=== PATIENT | female | born 1955 | race Caucasian/White ===

== ENCOUNTER 2017-03-02 16:19 | Inpatient (IN) | payer OTHER ==
[~2017-03-02] VITALS: Ht 160 cm; Wt 80.0 kg
[2017-04-02] MEDS ORDERED: THEO300T4 PO (09:16)
[2017-04-02] MEDS ORDERED: OMEG100037 PO (09:16)
[2017-04-02] MEDS ORDERED: LISI-519 PO (09:16)
--- NOTE | 2017-04-21 06:54 | HHI.DCPOC ---
Discharge Care Plan Diagnosis: (1) Osteoarthritis of right hip (2) Status post total hip replacement, right Your Health Problems Are: Difficulty with ADL Goals to Promote Your Health * To prevent worsening of your condition and complications * To maintain your health at the optimal level Directions to Meet Your Goals Take your medications as prescribed Follow your dietary instruction Follow activity as directed Keep your appointments as scheduled Take your immunizations and boosters as scheduled If your symptoms worsen call your PCP, if no PCP go to Urgent Care Center or Emergency Room Smoking is Dangerous to Your Health. Avoid second hand smoke Call the 24-hour hour crisis hotline for domestic abuse at Tc Mckeon April 21, 2017 06:54
--- NOTE | 2017-04-21 06:54 | HHI.FF ---
Face to Face Verification Diagnosis: (1) Osteoarthritis of right hip (2) Status post total hip replacement, right Physical Therapy Gait training, Transfer training, bed to chair Hip: Total hip Right LE Weight Bearing: WB as tolerated Right LE Range of Motion: Active ROM Nursing Nursing: Nabeel teaching, Dressing changes Dressing Changes: Daily dressing change I have seen patient Radha Negro on 04/21/17. My clinical findings support the need for the requested home health care services because: Limited ability to care for self High risk of falls I certify that my clinical findings support that this patient is homebound because: Post-op weakness Unsteady gait/balance Tc Mckeon April 21, 2017 06:54
[2017-04-21] MEDS ORDERED: COMMODE 3-IN-11 MIS (06:55)
[2017-04-21] MEDS ORDERED: WALKER WHEELS/F1 MIS (06:55)
[2017-04-21] MEDS ORDERED: ceFAZolin 2 GM PREMIX 50 ML IV SCH (07:15)
[2017-04-21] MEDS ORDERED: DEXAMETHASONE SOD PHOS 20 MG/5 ML VIAL IV ONE (07:15)
[2017-04-21] MEDS ORDERED: POVIDONE IODINE 7.5% SCRUB 118 ML BOTTLE TOPICAL SCH (07:15)
[2017-04-21] MEDS ORDERED: VANCOMYCIN 1000 MG/NS 250 ML (for <70 kg) IV SCH ×2 (07:15)
[2017-04-21] MEDS ORDERED: POVIDONE IODINE 5% (ANTISEPSIS KIT) 4 APPLICATIONS EACH NARE PRN (07:30)
[2017-04-21] MEDS ORDERED: METOPROLOL TARTRATE 25 MG TAB PO PRN (07:30)
[2017-04-21] MEDS ORDERED: SODIUM CHLORID 0.9% 500 ML IV PRN (07:30)
[2017-04-21] MEDS ORDERED: INSULIN HUMAN REGULAR 1,000 UNITS/10 ML VIAL SQ PRN (07:30)
[2017-04-21] MEDS ORDERED: LACTATED RINGER'S 1000 ML IV PRN (07:30)
[2017-04-21] MEDS ORDERED: CHLORHEXIDINE GLUCONATE 2 % 1 PACK (2 CLOTHS) TOPICAL PRN (07:30)
[2017-04-21] MEDS ORDERED: THEO300T30 PO (07:31)
[2017-04-21 07:35] VITALS: BP 156/76; PULSE 86; RESP 20; TEMP 98.8; O2SAT 96
[2017-04-21] MEDS ORDERED: TRANEXAMIC ACID INJ 795 MG in SODIUM CHLORIDE 0.9% INJ 100 ML IV SCH ×2 (08:00→13:00)
[2017-04-21] MEDS ORDERED: EXPAREL PERI-ARTICULAR INJECTION (TOTAL VOL. 60 ML) P-ARTICULR SCH ×2 (08:00)
[2017-04-21] MEDS ORDERED: MIDAZOLAM HCL 2 MG/2 ML VIAL ONE (08:53)
[2017-04-21] MEDS ORDERED: FAMOTIDINE 20 MG/2 ML VIAL ONE (08:54)
[2017-04-21] MEDS ORDERED: fentaNYL CITRATE 250 MCG/5 ML AMP ONE (09:24)
[2017-04-21] MEDS ORDERED: MORPHINE SULFATE 4 MG/ML INJ ONE (09:24)
[2017-04-21] MEDS ORDERED: ACETAMINOPHEN 1000 MG/100 ML VIAL IV ONE (09:24)
[2017-04-21] MEDS ORDERED: ePHEDrine/NS 25 MG/5 ML SYR IV ONE (10:17)
[2017-04-21] MEDS ORDERED: ONDANSETRON HCL 4 MG/2 ML VIAL IV PUSH ONE (10:17)
[2017-04-21] MEDS ORDERED: LACTATED RINGER'S 1000 ML INJ 1,000 ML IV ONE (10:17)
[2017-04-21] MEDS ORDERED: PROPOFOL 200 MG/20 ML AMP IV ONE (10:17)
[2017-04-21] MEDS ORDERED: NEOSTIGMINE 3 MG/3 ML SYR IV ONE (10:17)
[2017-04-21] MEDS ORDERED: GENTAMICIN SULFATE 80 MG/2 ML VIAL IRRIGATION ONE (10:28)
[2017-04-21] MEDS: SODIUM CHLOR 0.9% 1000 ML INJ 1,000 ML IV SCH ×2 (11:41→20:13)
--- NOTE | 2017-04-21 11:44 | PD.OP ---
cc: Carlos Ladd MD Operative Report Date of Surgery: April 21, 2017 Preoperative Diagnosis: Right hip severe osteoarthritis Postoperative Diagnosis: Same Procedure: Right total hip arthroplasty Anesthesia: Gen. Surgeon: Carlos Ladd Access Representative(s): FELIZ Bliss The surgical procedure was assisted by my Advanced Registered Nurse Practitioner. My UROLOGY PHYSICIAN ASSISTANT presence was necessary throughout this case for the manipulation and positioning of the surgical extremity. My UROLOGY PHYSICIAN ASSISTANT was assisting me throughout the duration of this procedure. The skill set of an Advance Registered Nurse Practitioner was medically necessary to complete this procedure. During the surgical case, the pharmacy technician instructor was working at the back table and the Advance Registered Nurse Practitioner was directly assisting me. Operation and Findings: IMPLANT DESCRIPTION: 1. Pace Gription Cup, acetabular size 48. 2. Pace AltrX polyethylene, neutral. 4. Corail femoral stem size 9, no collar, standard offset. 5. Femoral head/neck ceramic, 32, +1. ESTIMATED BLOOD LOSS: 250 cc. JUSTIFICATION FOR PROCEDURE: The patient has end-stage osteoarthritis to the hip. There is an attached conservative measures pathway form in the chart that describes the nonoperative measures that were undertaken prior to consideration of surgical management. The patient understood the risks and benefits of surgical management. See my office notes for further details. PROCEDURE: The patient was brought back to the operative theatre. Adequate anesthesia was obtained. The patient received intravenous vancomycin and Ancef. The patient was carefully placed on the operative table. The lower extremity was prepped and draped in the usual sterile fashion. Fluoroscopic images were obtained. We made a standard anterior incision over the hip. We dissected through the TFL fascia, exposing the anterior capsule. Arthrotomy was performed in a T-shaped fashion. The capsule was tagged with a #2 FiberWire. End-stage arthritis was identified. Osteotomy was performed through the femoral neck exposing the acetabulum. Remnants of the labrum were resected and osteophytes were removed. We sequentially reamed the acetabulum. We trialed the hip and placed the final cup into position. This was done under fluoroscopic guidance to obtain the appropriate inclination and anteversion. A manhole cover was placed into the acetabular component. We then placed the final polyethylene into position and confirmed that it was well seated. Capsular attachments on the calcar and the inner aspect of the greater trochanter were resected. On the proximal aspect of the femur we used a rongeur , box osteotome, canal finder, sequential broaches and lateralizing rasp. We calcar planed the proximal femur. Then thoroughly irrigated the wound. We trialed the hip with the appropriate size stem. We placed the final stem in to position and trialed again. The hip was stable while it was externally rotated 70 degrees when the leg was lowered to the floor. The final head was applied, and final fluoroscopic images were obtained. The wound was thoroughly irrigated again. Interarticular injection of liposomal bupivacaine was given. The capsule was closed with #2 FiberWire and #1 Vicryl. The deep fascia was closed with a #2 Stratafix, followed by 2-0 Vicryl in the skin and nir. Postop plan is to weight-bear as tolerated. DVT prophylaxis will be performed with Gabrielle, NEO quigley, early mobilization, and Lovenox followed by aspirin. Carlos Ladd MD April 21, 2017 11:44
[2017-04-21] MEDS ORDERED: ASPI325T PO (11:45)
[2017-04-21] MEDS ORDERED: ACETAMINOPHEN/HYDROcodone 325 MG/5 MG TAB PO PRN (11:45)
[2017-04-21] MEDS ORDERED: BISACODYL 10 MG SUPP RECTAL PRN (11:45)
[2017-04-21] MEDS ORDERED: ENOX40P SQ (11:45)
[2017-04-21] MEDS ORDERED: Post-op Orders (for Pharmacy) MISC XX ONE (11:45)
[2017-04-21] MEDS ORDERED: diphenhydrAMINE HCL 50 MG/ML VIAL IV PRN (11:45)
[2017-04-21] MEDS ORDERED: NORC5TAB PO (11:45)
[2017-04-21] MEDS ORDERED: MORPHINE SULFATE 4 MG/ML INJ IV PUSH PRN (11:45)
[2017-04-21] MEDS ORDERED: ONDANSETRON HCL 4 MG/2 ML VIAL IVP PRN (11:45)
[2017-04-21] MEDS ORDERED: ALUMINUM/MAGNESIUM/SIMETH 30 ML CUP PO PRN (11:45)
[2017-04-21] MEDS ORDERED: THEOPHYLLINE ER 12 HR 300 MG TABCR PO SCH (11:45)
[2017-04-21] MEDS ORDERED: SODIUM CHLORIDE 0.9% FLUSH 5 ML FLUSH IVF PRN (11:45)
[2017-04-21] MEDS ORDERED: MAGNESIUM HYDROXIDE SUSP 30 ML CUP PO PRN (11:45)
[2017-04-21] MEDS ORDERED: NALOXONE HCL 0.4 MG/ML AMP IV PRN (11:45)
--- NOTE | 2017-04-21 12:36 | PD.CONS ---
HPI Service [facility] Hospitalists Consult Requested By Dr. Carlos Ladd Reason for Consult Medical Management Primary Care Physician Gerard Beth MD Diagnoses: History of Present Illness Mrs. Negro is a pleasant 61 y/o WF with HTN, asthma, and osteoarthritis. Pt was admitted to [facility] on 04/21/17 for an elective right total hip arthroplasty with Dr. Ladd. Pt is seen post-operatively in PACU and is doing well. Mejia catheter is in place. Vital signs are stable. Pt denies any chest pain, SOB, abd pain, nausea/vomiting, palpitations or dizziness. She plans to go home with [facility] at the end of this hospitalization. Review of Systems Constitutional: DENIES: Fever, Chills Respiratory: DENIES: Cough, Shortness of breath Cardiovascular: DENIES: Chest pain, Palpitations Gastrointestinal: DENIES: Abdominal pain, Nausea, Vomiting Genitourinary: DENIES: Hematuria Integumentary: DENIES: Rash Neurologic: DENIES: Headache Psychiatric: DENIES: Confusion Past Family Social History Past Medical History HTN Asthma Chronic back pain/Sciatica Osteoarthritis Past Surgical History Tubal ligation Reported Medications Theophylline ER 12 HR 150 Mg PO Q12H Lisinopril 5 Mg PO DAILY Allergies: Coded Allergies: No Known Allergies (Unverified , 04/21/17) Family History Father with hx of CAD Social History Occasional alcohol use, 2-3 drinks per week Hx of tobacco use, quit smoking in 2000, smoked for approx 30 pack years Pt is a retired fine arts chair Physical Exam Vital Signs Vital Signs Date Time Temp Pulse Resp B/P Pulse Ox O2 Delivery O2 Flow Rate FiO2 04/21/17 07:35 98.8 86 20 156/76 96 Physical Exam GENERAL: This is a well-nourished, well-developed patient, in no apparent distress. HEENT: Atraumatic. Normocephalic. No temporal or scalp tenderness. No scleral icterus. Airway patent. NECK: Trachea midline, supple, nontender. CARDIO: Regular. RESP: CTA bilaterally ABD: +BS, soft, non-tender, nondistended. EXT: Extremities without clubbing, cyanosis, or edema. NEURO: Awake and alert. Motor and sensory grossly within normal limits. Normal speech. Laboratory Laboratory Tests Test 04/21/17 07:29 Blood Type B POSITIVE Antibody Screen NEGATIVE Blood Bank Comment Imaging Last Impressions Hip and Pelvis X-Ray 04/21/17 1141 Signed Impressions: Service Date/Time: Friday, April 21, 2017 12:48 - CONCLUSION: Postoperative appearance of right total hip prosthesis. Sami Alva MD Hip X-Ray 04/21/17 0000 Signed Impressions: Service Date/Time: Friday, April 21, 2017 10:20 - CONCLUSION: Intraoperative images demonstrating right total hip prosthesis. Sami Alva MD Assessment and Plan Problem List: (1) Osteoarthritis of right hip Status: Chronic Plan: - Pt s/p right total hip arthroplasty on 04/21/[address] Ladd - Post-op pain control per Ortho - PT daily - IS - Constipation precautions - DVT prophylaxis (2) Status post total hip replacement, right Status: Acute Plan: - See above. (3) HTN (hypertension) Status: Chronic Plan: - Home meds continued - Monitor (4) Asthma Status: Chronic Plan: - Pt normally takes Theophylline 150mgpo BID but [facility] pharmacy does not have the extended release dose for 150mg BID as we will continue her at extended release dose of 300mg daily unless pt wants to bring in her own medications from home. Assessment and Plan Patient examined. Assessment and plan formulated with Ally Owen PA-C. I agree with the above. Problem Qualifiers (1) Osteoarthritis of right hip: Qualified Code: M16.11 - Primary osteoarthritis of right hip Ally Owen April 21, 2017 12:35 Liban Krause MD April 21, 2017 20:31
[2017-04-21] MEDS ORDERED: DO NOT ADM ANY ANTICOAGULANT DRUGS PRN (12:45)
--- NOTE | 2017-04-21 13:14 | RADRPT ---
EXAM DATE/TIME: 04/21/2017 10:20 [facility] COMPARISON: No previous studies available for comparison. INDICATIONS : Total right anterior hip arthroplasty. OR. MEDICAL HISTORY : None. SURGICAL HISTORY : None. ENCOUNTER: Initial ACUITY: 1 day PAIN SCORE: Non-responsive. LOCATION: Right hip FINDINGS: 2 intraoperative spot images of the right hip. Right total hip prosthesis. Alignment within normal li mits. CONCLUSION: Intraoperative images demonstrating right total hip prosthesis. Sami Alva MD on April 21, 2017 at 13:12 Board Certified Radiologist. This report was verified electronically.
--- NOTE | 2017-04-21 13:45 | RADRPT ---
EXAM DATE/TIME: 04/21/2017 12:48 [facility] COMPARISON: No previous studies available for comparison. INDICATIONS : Post op total right hip. MEDICAL HISTORY : None. SURGICAL HISTORY : None. ENCOUNTER: Initial ACUITY: 1 day PAIN SCORE: 2/10 LOCATION: Right Hip. FINDINGS: 3 views of the right hip and pelvis. Right total hip prosthesis in place. Bone alignment within fredrick l limits. No evidence of fracture. Cutaneous nir are seen laterally. CONCLUSION: Postoperative appearance of right total hip prosthesis. Sami Alva MD on April 21, 2017 at 13:40 Board Certified Radiologist. This report was verified electronically.
[2017-04-21 16:00] VITALS: BP 167/88; PULSE 100; RESP 18; TEMP 96.4; O2SAT 96
[2017-04-21] MEDS: SODIUM CHLORIDE 0.9% FLUSH 5 ML FLUSH IVF SCH (20:13)
[2017-04-21] MEDS ORDERED: ZOLPIDEM TARTRATE 5 MG TAB PO PRN (21:00)
[2017-04-21 21:05] VITALS: BP 120/60; PULSE 74; RESP 18; TEMP 97.4; O2SAT 96
[2017-04-22 00:45] VITALS: BP 121/63; PULSE 93; RESP 18; TEMP 97.8; O2SAT 96
[2017-04-22] MEDS: ACETAMINOPHEN/HYDROcodone 325 MG/5 MG TAB PO PRN ×3 (01:24→14:06)
[2017-04-22 06:00] LABS: HEMATOCRIT 31.2 % (35.0-46.0); MEAN CELL VOLUME 89.7 FL (80.0-100.0); MEAN CORPUSCULAR HEMOGLOBIN 30.4 PG (27.0-34.0); MEAN CORPUSCULAR HGB CONC 33.9 % (32.0-36.0); PLATELET COUNT 222 TH/MM3 (150-450); RED BLOOD COUNT 3.48 MIL/MM3 (4.00-5.30); RED CELL DISTRIBUTION WIDTH 13.2 % (11.6-17.2); REVIEW FLAG FINAL; WHITE BLOOD COUNT 13.4 TH/MM3 (4.0-11.0)
[2017-04-22 06:18] VITALS: BP 134/65; PULSE 76; RESP 17; TEMP 98.6; O2SAT 96
[2017-04-22] MEDS: SODIUM CHLOR 0.9% 1000 ML INJ 1,000 ML IV SCH (07:41)
[2017-04-22] MEDS ORDERED: DEXAMETHASONE SOD PHOS 20 MG/5 ML VIAL IV ONE (07:45)
[2017-04-22 07:47] VITALS: BP 156/65; PULSE 93; RESP 18; TEMP 98.5; O2SAT 97
[2017-04-22] MEDS: SODIUM CHLORIDE 0.9% FLUSH 5 ML FLUSH IVF SCH (09:00)
[2017-04-22] MEDS ORDERED: LISINOPRIL 5 MG TAB PO SCH (09:00)
[2017-04-22] MEDS ORDERED: THEOPHYLLINE ER 24 HR 300 MG CAPCR PO SCH (09:00)
[2017-04-22 09:27] VITALS: O2SAT 98
[2017-04-22] MEDS ORDERED: ENOXAPARIN SODIUM 40 MG/0.4 ML SYRINGE SQ SCH (11:00)
[2017-04-22 12:00] VITALS: BP 157/70; PULSE 85; RESP 18; TEMP 98.6; O2SAT 95
--- NOTE | 2017-04-22 13:10 | PD.ORT.PN ---
Subjective Post Op Day #: 1 Subjective Remarks Patient is OOB in chair with minimal pain to the right hip. Patient ambulatory and voiding. Objective Vitals Vital Signs Date Time Temp Pulse Resp B/P Pulse Ox O2 Delivery O2 Flow Rate FiO2 04/22/17 09:27 98 21 04/22/17 07:47 98.5 93 18 156/65 97 04/22/17 06:18 98.6 76 17 134/65 96 04/22/17 00:45 97.8 93 18 121/63 96 04/21/17 21:05 97.4 74 18 120/60 96 04/21/17 18:58 Room Air 04/21/17 16:00 96.4 100 18 167/88 96 04/21/17 15:15 97.8 92 16 146/82 100 Nasal Cannula 2 04/21/17 15:00 98 16 146/84 100 Nasal Cannula 2 04/21/17 14:30 98 16 154/88 100 Nasal Cannula 2 04/21/17 14:00 87 16 141/65 100 Nasal Cannula 3 04/21/17 13:30 88 16 143/65 100 Nasal Cannula 3 I/O 04/21/17 04/21/17 04/21/17 04/22/17 04/22/17 04/22/17 07:00 15:00 23:00 07:00 15:00 23:00 Intake Total 1980 ml 1362 ml 1249 ml Output Total 750 ml 1350 ml 1075 ml Balance 1230 ml 12 ml 174 ml Intake Oral 180 ml 720 ml 360 ml IV Total 600 ml 642 ml 889 ml Other 1200 ml Output Urine Total 550 ml 1350 ml 1075 ml Estimated Blood Loss 200 ml # Bowel Movements 0 0 Result Diagram: 04/22/17 0510 Procedures Right MIGUEL Objective Remarks The patient's dressing was changed with scant serosanguineous drainage. Incision is well approximated with surgical clips intact. No redness or s/s of infection. EHL/TA/G intact. No calf tenderness and swelling. 2+ pedal pulses. Minimal swelling. + SILT Assessment & Plan Ortho Post Op Day #: 1 Problem List: Assessment and Plan POD #1: Right MIGUEL 1. WBAT RLE 2. Lovenox followed by ASA for DVT prophylaxis 3. Ice to the right hip PRN 4. Stable for discharge home today with home health. Tc Mckeon Apr 22, 2017 13:10
[2017-04-22 16:00] VITALS: BP 139/72; PULSE 83; RESP 18; TEMP 96.9; O2SAT 98
[2017-04-22] MEDS ORDERED: MULTIVITAMINS/MINERALS THERAPEUTIC TAB PO SCH (21:00)
[2017-04-22] MEDS ORDERED: DOCUSATE SODIUM 100 MG CAP PO SCH (21:00)
--- NOTE | 2017-04-25 21:41 | HHI.DS ---
Discharge Summary Admission Date April 21, 2017 at 06:39 Discharge Date: Apr 22, 2017 Admitting Diagnosis OA right hip Status post total hip replacement, right Diagnosis: (1) Osteoarthritis of right hip Diagnosis: Principal (2) Status post total hip replacement, right Diagnosis: Principal Procedures Right MIGUEL Brief History This is a 61 year old female patient with severe OA of the right hip. CBC/BMP: 04/22/17 0510 PE at Discharge The patient's dressing was changed with scant serosanguineous drainage. Incision is well approximated with surgical clips intact. No redness or s/s of infection. EHL/TA/G intact. No calf tenderness and swelling. 2+ pedal pulses. Minimal swelling. + SILT Hospital Course The patient was admitted to the hospital for severe OA of the right hip to have a right MIGUEL. The patient's surgery went well with no complications. The patient is WBAT on the RLE. The patient had a regular diet. The patient was placed on Lovenox followed by ASA for DVT prophylaxis. The patient was discharged home with home health and will f/u with Dr. Ladd in 1-2 weeks. Pt Condition on Discharge: Stable Discharge Disposition: Disch w/ Home Health Serv Discharge Instructions Diet Instructions: As Tolerated, No Restrictions Activities You Can Perform: Weight Bearing as Linsey Activities to Avoid: Strenuous Activity Follow up Referrals: Orthopedics with Carlos Ladd MD SN[facility]/ with [facility] New Medications: Aspirin (Aspirin) 325 Mg Tab 325 MG PO DAILY Start Aspirin after Lovenox is completed. Prevent Blood Clot # 30 Ref 0 TAB Commode 3-in-1 (Commode 3-in-1) 1 Mis Mis 1 EA .ROUTE DIRECTED #1 Ref 0 EA Enoxaparin Inj (Lovenox Inj) 40 Mg/0.4 Ml Syr 40 MG SQ DAILY Start Aspirin after Lovenox is completed. Blood Clot Prevention # 10 Ref 0 SYRINGE Hydrocodone-Acetaminophen ([facility]) 5-325 mg Tab 1-2 TAB PO Q4H PRN PAIN #60 Ref 0 TAB Walker with Front Wheels (Walker with Front Wheels) 1 Mis Mis 1 EA .ROUTE DIRECTED #1 Ref 0 EA Continued Medications: Lisinopril (Lisinopril) 5 Mg Tab 5 MG PO DAILY Blood Pressure Management #30 Ref 0 TAB Theophylline ER 12 HR (Theophylline ER 12 HR) 300 Mg Tab 150 MG PO Q12H #60 Ref 0 TAB Tc Mckeon Apr 25, 2017 21:41
== END 2017-04-22 17:23 | disposition home health service (06) | DRG 470 ==
LOC: HSDI 04-21 06:39 → EDUNIT# 04-21 10:00 → N06A 04-21 15:31
PROVIDERS: ADMIT Orthopaedic Surgery; ATTEND Orthopaedic Surgery
PROC: 0SR904A Replacement of Right Hip Joint with Ceramic on Polyethylene Synthetic Substitute, Uncemented, Open Approach (ICD-10-PCS; principal; 2017-04-21 09:46)
DX: M16.11 Unilateral primary osteoarthritis, right hip (principal); I10 Essential (primary) hypertension; J45.909 Unspecified asthma, uncomplicated; M54.9 Dorsalgia, unspecified; M54.30 Sciatica, unspecified side; G89.29 Other chronic pain; Z87.891 Personal history of nicotine dependence
CPT/HCPCS: 73502; 76000; 80198; 85027; 86850; 86900; 86901; 94150; C1776; C9290; J0131; J0690; J1100; J1580; J1650; J2250; J2270; J2405; J2710; J3010; J3370; J7030; J7050; J7120

== ENCOUNTER → 2017-04-02 | Outpatient (CLI) | payer OTHER ==
[~2017-04-02] MED LIST: ASPI325T PO; COMMODE 3-IN-11 MIS; ENOX40P SQ; LISI-519 PO; NORC5TAB PO; OMEG100037 PO; THEO300T30 PO; THEO300T4 PO; WALKER WHEELS/F1 MIS
[2017-04-02 09:36] LABS: AUTOMATED NEUTROPHIL # 5.3 TH/MM3 (1.8-7.7); BASOPHIL % 0.3 % (0.0-2.0); EOSINOPHIL # 0.2 TH/MM3 (0-0.4); HEMATOCRIT 39.4 % (35.0-46.0); HEMO FLAGS DIFF FINAL; LYMPH % 24.9 % (9.0-44.0); LYMPHOCYTE # 2.1 TH/MM3 (1.0-4.8); MEAN CELL VOLUME 90.3 FL (80.0-100.0); MEAN CORPUSCULAR HEMOGLOBIN 29.6 PG (27.0-34.0); MEAN CORPUSCULAR HGB CONC 32.8 % (32.0-36.0); MONO % 9.5 % (0.0-8.0); NEUT % 63.3 % (16.0-70.0); PLATELET COUNT 258 TH/MM3 (150-450); RED BLOOD COUNT 4.36 MIL/MM3 (4.00-5.30); RED CELL DISTRIBUTION WIDTH 13.3 % (11.6-17.2); WHITE BLOOD COUNT 8.3 TH/MM3 (4.0-11.0)
[2017-04-02 09:53] LABS: PROTHROMBIN TIME - PATIENT 10.9 SEC (9.8-11.6)
[2017-04-02 10:00] LABS: WESTERGREN SEDIMENTATION RATE 39 mm/hr (0-30)
[2017-04-02 10:14] LABS: BLOOD, URINE SMALL (NEG); COMMENT (UR) CULT NOT INDICATED; CULTURE IF INDICATED CULT NOT INDICATED; GLUCOSE,URINE NEG (NEG); KETONE, URINE NEG (NEG); MUCUS URINE FEW /lpf (OCC); NITRITE,URINE NEG (NEG); SQUAMOUS EPITHELIAL CELL URINE 4 /hpf (0-5); URINE COLOR YELLOW (YELLW/STRAW)
[2017-04-02 10:33] LABS: ALKALINE PHOSPHATASE 66 U/L (45-117); ALT (GPT) 29 U/L (10-53); ANION GAP 10 MEQ/L (5-15); AST (GOT) 20 U/L (15-37); BICARBONATE 29.3 MEQ/L (21.0-32.0); BLOOD UREA NITROGEN 12 MG/DL (7-18); CHLORIDE 101 MEQ/L (98-107); GLOMERULAR FILTRATION RATE 94 ML/MIN (>89); GLUCOSE,FASTING 107 MG/DL (74-99); POTASSIUM 3.9 MEQ/L (3.5-5.1); SODIUM (NA) 140 MEQ/L (136-145); TOTAL BILIRUBIN ADULT 0.4 MG/DL (0.2-1.0)
== END ==
LOC: CPRE 08:42
PROVIDERS: ATTEND Orthopaedic Surgery
DX: Z01.812 Encounter for preprocedural laboratory examination (principal); Z96.60 Presence of unspecified orthopedic joint implant; M25.50 Pain in unspecified joint; M16.11 Unilateral primary osteoarthritis, right hip; M79.609 Pain in unspecified limb
CPT/HCPCS: 36415; 80053; 81001; 85025; 85610; 85652; 85730